=== PATIENT | female | born 1985 | race Caucasian/White ===

== ENCOUNTER 2017-05-20 05:41 | Day surgery (SDC) | payer BC ==
[~2017-05-20] VITALS: Ht 154.9 cm; Wt 61.8 kg
--- NOTE | ~2017-05-20 | OR ---
PATIENT'S NAME: JANET AVERY [facility] AGE: 32 Y [address] [place] [facility] [place], [place] [address] [place] [facility] [place]: 05/20/2017 OR/Procedure Report DISCHARGE DATE: FAMILY PHYSICIAN: JAYLEN PARKS APRN ATTENDING PHYSICIAN: CLAUDIA KHAN SURGEON: Claudia Khan MD [employer]: You Vivar M.D. DATE OF PROCEDURE: 05/20/2017 PROCEDURES PERFORMED: Exam under anesthesia, total vaginal hysterectomy, and bilateral salpingectomy. PREOPERATIVE DIAGNOSES: 1. Abnormal uterine bleeding with heavy menstrual bleeding. 2. Factor VII deficiency. 3. Pelvic pain. 4. Family history of ovarian malignancy. POSTOPERATIVE DIAGNOSES: 1. Abnormal uterine bleeding with heavy menstrual bleeding. 2. Factor VII deficiency. 3. Pelvic pain. 4. Family history of ovarian malignancy. ESTIMATED BLOOD LOSS: 100 mL. ANTIBIOTICS: Two grams of Ancef. FINDINGS: Slightly enlarged uterus, approximately 8 to 10 weeks in size. Normal fallopian tubes and ovaries bilaterally. Normal-appearing cervix and vagina. Minimal rectocele present. COMPLICATIONS: None. DISPOSITION: The patient is stable and sent to PACU. SPECIMENS: Uterus, cervix, and bilateral fallopian tubes. INDICATION FOR THE PROCEDURE: The patient is a 32-year-old female who was evaluated in the office for complaints of abnormal uterine bleeding with heavy menstrual bleeding. She had previously been evaluated by Dr. Fahad Zambrano in [place] for these complaints. She also had a hemorrhagic ovarian cyst at that time. It appeared to have resolved by the time she saw me in the office and I could not find any ovarian abnormalities. The patient was concerned she had a family history of an ovarian malignancy. She reported on the morning of PATIENT'S NAME: JANET AVERY [facility] AGE: 32 Y [address] [place]: [facility] [address] [place], [place] [address] [place] [facility] [place]: 05/20/2017 OR/Procedure Report DISCHARGE DATE: FAMILY PHYSICIAN: JAYLEN PARKS APRN ATTENDING PHYSICIAN: CLAUDIA KHAN surgery that her grandmother was tested and found to be negative for BRCA genes. We had discussed in the office that if an elevated risk had been identified that we would do a delayed interval procedure for risk reducing oophorectomy. We did discuss removing fallopian tubes as an effort to help reduce her risk of ovarian cancer. The patient had a normal endometrial biopsy. She also was sent for evaluation to Hematology due to her reported factor VII deficiency. Her levels were found to be approximately 35% and she was recommended to receive recombinant Factor VII preoperatively and then approximately every 4 to 6 hours after surgery to help control her bleeding risk. The patient also had some mild complaints of constipation and pelvic pressure. We had discussed in the office that she had a minimal rectocele present and that if it was found to be more significant when she was relaxing under anesthesia, we could consider repair of that. She was aware of the risks and benefits of the procedure to include, but not limited to, risk of bleeding, risk of anesthesia, risk of thromboembolism, risk of infection, risk of injury to bowel and bladder. She is aware of these risks and desired to proceed. DESCRIPTION OF PROCEDURE: The patient was seen in the preoperative area where consents were reviewed and all questions answered. She was then taken back to the operating room and placed under general anesthesia without difficulty. She was positioned in dorsal lithotomy position in [facility]note 2]-can stirrups. An exam under anesthesia was performed. Again, uterus was noted to be slightly enlarged and retroverted. There were no adnexal masses palpable. She was prepped and draped in the usual sterile fashion. Bladder was drained prior to starting the procedure. A weighted speculum was placed in the vagina and a Thiago was used to retract anteriorly. Thyroid-Elena clamps were used to grasp the cervix and gentle traction was applied. Hydrodissection was performed using 1% lidocaine with epinephrine with a total of 10 mL injected circumferentially around the cervix. A scalpel was then used to make an incision all the way around the cervix. Blunt retraction was used with an open Ray-Carlos sponge. Entry was then made into the posterior peritoneum using Galo scissors. Entry was made into the anterior peritoneum using Metzenbaum scissors. Retractors were replaced. The uterosacral ligaments were then clamped, bilaterally cut, and ligated. Successive bites were taken up each side of the uterus until the uteroovarian ligaments were transected. Uterus and cervix were handed off. Bilateral fallopian tubes were then brought down using [place] clamps, clamped off, transected and ligated, and handed off for pathology. Bilateral ovaries appeared normal. Pedicles were inspected for bleeding with findings of slight bleeding noted at the site of the left fallopian tube, which was made hemostatic using a [id number] suture of 0 Vicryl. Right pedicles were inspected and appeared to be hemostatic. The cuff was then closed in a running locked fashion using 0 Vicryl being careful to incorporate the anterior and posterior peritoneum as well as the uterosacral ligaments. All needle, sponge, and instrument counts were correct PATIENT'S NAME: JANET AVERY [facility] AGE: 32 Y [address] ROOM: [address] [address] [place] [facility] [place]: 05/20/2017 OR/Procedure Report DISCHARGE DATE: FAMILY PHYSICIAN: JAYLEN PARKS APRN ATTENDING PHYSICIAN: CLAUDIA KHAN x2 at the completion of the procedure. The patient had very little relaxation of the posterior wall of the vagina and it was felt at that time that a posterior repair did not need to be performed. The patient was taken back to the PACU in stable condition. CLAUDIA KHAN MD GT/naty /[id number] d: 05/20/17 1847 t: 05/21/17 0738, OPERATIVE SUMMARY
[~2017-05-20 05:41] MED LIST: FEOSOL325 MG PO; PROTONIX20 MG PO
[2017-05-20 06:39] LABS: BASOPHIL # 0.1 K/uL (0.0-0.2); BASOPHIL % 0.7 %; EOSINOPHIL # 0.3 K/uL (0.0-0.5); EOSINOPHIL % 4.6 %; HEMOGLOBIN 13.2 g/dL (11.0-15.0); IMMATURE GRANULOCYTE % 0.1 %; LYMPHOCYTE # 2.5 K/uL (0.8-4.0); LYMPHOCYTE % 36.2 %; MCH 28.9 pg (27.0-34.0); MCV 87.5 fl (83.0-98.0); MONOCYTE # 0.6 K/uL (0.0-1.0); MONOCYTE % 7.9 %; MPV 11.3 fl (9.4-12.4); NEUTROPHIL # (ANC) 3.5 K/uL (1.8-7.8); NEUTROPHIL % 50.5 %; NRBC % 0 /100WBC (0-0.00); PLATELET COUNT 216 K/uL (150-450); RBC 4.57 M/uL (3.50-5.50); RDW-CV 13.7 % (11.9-14.6)
[2017-05-20 06:50] LABS: INR - (THERAPEUTIC) 1.14 (0.92-1.07)
--- NOTE | 2017-05-20 16:35 | NUR ---
Significant event: Received from PACU. Percocet at 1407 for back and abdominal pain. Irvin discontinued at 1615, tolerated well. Minimal drainage on alo pad, dark red in color. Drinking good. C/O nausea once and then reported it passed very quickly. at bedside. Blood pressure from 95/58 to 78/43 patient reports she normally runs low.
--- NOTE | 2017-05-21 04:13 | NUR ---
Significant Event: Sleeping well tonight. Afebrile, all other VSS. Percocet given x3 for pain last at 0304. Zofran given x1 at 1910 for nausea. Up in room with minimal assist. Small amount of bloody vaginal dicharge noted. Drinking and voiding adequate amounts. PIV to L) post FA patent and infusing without complications. in room throughout the night. Follow up:
[2017-05-21 06:41] LABS: BASOPHIL % 0.1 %; EOSINOPHIL # 0.1 K/uL (0.0-0.5); EOSINOPHIL % 0.4 %; HEMATOCRIT 34.9 % (33.0-46.0); HEMOGLOBIN 11.5 g/dL (11.0-15.0); IMMATURE GRANULOCYTE % 0.3 %; LYMPHOCYTE # 2.1 K/uL (0.8-4.0); LYMPHOCYTE % 18.8 %; MCH 29.9 pg (27.0-34.0); MCV 90.9 fl (83.0-98.0); MONOCYTE # 0.9 K/uL (0.0-1.0); MONOCYTE % 7.8 %; MPV 11.8 fl (9.4-12.4); NEUTROPHIL # (ANC) 8.2 K/uL (1.8-7.8); NEUTROPHIL % 72.6 %; NRBC % 0 /100WBC (0-0.00); PLATELET COUNT 188 K/uL (150-450); RBC 3.84 M/uL (3.50-5.50); RDW-CV 14.1 % (11.9-14.6); WBC 11.3 K/uL (4.0-11.0)
[2017-05-21] MEDS ORDERED: SURFAK240 MG PO (09:59)
[2017-05-21] MEDS ORDERED: IBUPROFEN800 MG PO (10:00)
[2017-05-21] MEDS ORDERED: PERCOCET 5-3251 EACH PO (10:02)
--- NOTE | 2017-05-21 10:27 | NUR ---
DISCHARGE: D: ORDERS RECEIVED FOR THE PATIENT TO BE DISCHARGED TO HOME TODAY. I: DISMISSAL INSTRUCTIONS WERE PREPARED AND REVIEWED WITH THE PATIENT VIRTUALLY. THE FOLLOWING INFORMATION WAS DISCUSSED INCLUDING LAILA TEACHING SHEETS PROVIDED: DISCHARGE INSTRUCTIONS FOR VAGINAL HYSTERECTOMY, DOCUSATE CALCIUM, PERCOCET, AND PREVENTING DVT. REVIEWED PRESCRIPTION MEDICATION AND FOLLOW UP APPOINTMENT WITH DR. TROY. R: THE PATIENT VERBALIZED UNDERSTANDING OF THE DISMISSAL EDUCATION AT THE TIME OF TEACHING WITH NO FURTHER QUESTIONS. P: THE ABOVE INFORMATION WAS SHARED WITH THE PRIMARY NURSE AND THE CHARGE NURSE THAT THE DISMISSAL EDUCATION WAS COMPLETED. THE PATIENT IS READY FOR DISCHARGE TO THE [facility] VIA WHEEL CHAIR BY NURSING STAFF.
== END 2017-05-21 11:22 | disposition disaster alternative care site (69) ==
LOC: GMSU 05:41 → GSDC 05:41 → GMSU 11:56 → GSDC 05-21 11:22
PROVIDERS: Obstetrics & Gynecology
PROC: 0UT97ZZ Resection of Uterus, Via Natural or Artificial Opening (ICD-10-PCS; principal; 2017-05-20)
PROC: 0UTC7ZZ Resection of Cervix, Via Natural or Artificial Opening (ICD-10-PCS; 2017-05-20)
PROC: 0UT77ZZ Resection of Bilateral Fallopian Tubes, Via Natural or Artificial Opening (ICD-10-PCS; 2017-05-20)
DX: D25.9 Leiomyoma of uterus, unspecified (principal); K21.9 Gastro-esophageal reflux disease without esophagitis; D64.9 Anemia, unspecified; D68.2 Hereditary deficiency of other clotting factors; F17.200 Nicotine dependence, unspecified, uncomplicated; Z79.899 Other long term (current) drug therapy; Z80.41 Family history of malignant neoplasm of ovary; Z88.0 Allergy status to penicillin
CPT/HCPCS: J0131; J0690; J2001; J2250; J2405; J3010; J7030; J7189

== ENCOUNTER → 2017-06-05 | Outpatient (CLI) | payer BC ==
[~2017-06-05] MED LIST changes: +IBUPROFEN800 MG PO; +PERCOCET 5-3251 EACH PO; +SURFAK240 MG PO
[2017-06-05 14:12] LABS: CREATININE 0.8 mg/dL (0.5-1.1)
== END | disposition disaster alternative care site (69) ==
LOC: GLAB 13:22
PROVIDERS: Obstetrics & Gynecology
DX: R06.02 Shortness of breath (principal)
CPT/HCPCS: Q9967